=== PATIENT | male | born 1955 | race Caucasian/White ===

== ENCOUNTER 2017-09-19 19:01 | Inpatient (IN) ==
--- NOTE | 2017-09-19 19:08 | Emergency Department Note ---
ED Disposition Clinical Impression: Angina pectoris, Elevated troponin Disposition: Still a Patient Condition on Discharge: Good - Critical Care Critical Care Time: No Attestation: On , the high probability of a clinically significant, sudden or life threatening deterioration of the following system(s) required my full and direct attention, intervention and personal management. The time I documented below is in addition to time spent performing reported procedures but includes the following listed in this critical care notation. Medical Decision Making - Mendel Inquiry Pt receiving controlled substance: No Vital Signs: 09/19/17 19:02 Temperature 99 F Temperature Source Oral Pulse Rate [Left Brachial] 89 Respiratory Rate 16 Blood Pressure [Left Arm] 176/92 Blood Pressure Mean [Left Arm] 120 Blood Pressure Source [Left Arm] Automatic Cuff Blood Pressure Position [Left Arm] Sitting 02 Sat by Pulse Oximetry 95 Oxygen Delivery Method Room Air - Lab Data Lab Results 09/19/17 19:12: WBC 7.2, RBC 5.22, Hgb 15.3, Hct 47.7, MCV 91.4, MCH 29.3, MCHC 32.0, RDW 12.7, Plt Count 200, MPV 8.5, Neut % (Auto) 58.6, Lymph % (Auto) 32.0 , [place] % (Auto) 5.9, Eos % (Auto) 3.0, Baso % (Auto) 0.6, Neut # (Auto) 4.2, Lymph # (Auto) 2.3, [place] # (Auto) 0.4, Eos # (Auto) 0.2, Baso # (Auto) 0.0 09/19/17 19:12: Sodium 139, Potassium 3.5, Chloride 102, Carbon Dioxide 32, Anion Gap 8.5, BUN 13, Creatinine 0.93, Estimated Creat Clear 103, Estimated GFR 82, Est GFR ( Amer) 100, Glucose 176 H, Calcium 9.0, Total Bilirubin 0.4, AST 16, ALT 21, Alkaline Phosphatase 108, Total Creatine Kinase 81, CK-MB ( CK-2) 3.1, CK-MB (CK-2) Rel Index 3.8, Troponin I 0.09 H, Total Protein 7.3, Albumin 3.5, Globulin 3.8 H, Albumin/Globulin Ratio 0.9 L Result diagrams: 09/19/17 19:12 09/19/17 19:12 Orders (Tests/Meds): ED MEDICATIONS Discontinued Medications Generic Name Dose Route Start Last Admin Trade Name Sarah PRN Reason Stop Dose Admin Ticagrelor 180 mg 09/19/17 20:08 Brilinta 90mg Tablet PO 09/19/17 20:09 ONCE ONE ORDERS Category Date Time Status XR chest 2V Stat Exams 09/19/17 19:13 Taken ECG Request by /Anurag Stat Y 09/19/17 19:13 Ordered - Radiology Data #1 Image(s): Chest Image Reviewed: Yes I reviewed the patient's radiology image prior cabg, no acute process - ECG Data Tracing #1 EKG interpreted by Hernesto Patel MD: Rhythm: sinus Rate: 90 Lane: Left Ectopy: none Conduction: normal ST Segment Changes: Nonspecific ant/lat T Wave Changes: Nonspecific ant/lat Q Waves: none Minimal septal R waves, possible old septal [place] no evidence of acute ischemia or injury - TANMAY Score for Non-STEMI Age of patient: Less than 65 yrs Number of risk factors for CAD: Presence of 3 or more Prior coronary artery stenosis(seen in coronary angiography): 50% or more ST-Segment deviation on ECG (more than 1 min): Absent Prior aspirin intake: ASA intake in the last 7 days Severe anginal chest pain: Two or more episodes in last 24 hours Elevated cardiac markers(CK-MB or troponin): Present Non-Stemi Risk Score: 5 Medical Decision Narrative: 8:00 PM: Discussed with Dr. Villa. He requests patient be started on Brilinta, admit to hospital. I have discussed the case with Dr. Luu who agrees to admit the patient to the hospital. We discussed the patient's clinical information, including history, exam, laboratory and radiology results and ED course. Per hospital procedure, I will write temporary bridge inpatient orders on the patient. Specific orders requested by the admitting physician: Serial cardiac enzymes, cardiology consult General Adult HPI - General Stated complaint: CP Time Seen by Provider: 09/19/17 19:06 - History of Present Illness HPI narrative: Brought in by ambulance for chest pain. was loading a mower 35 minutes ago when he developed substernal chest pain. Associated shortness of breath, but no nausea, vomiting, or diaphoresis. Received nitroglycerin during transport and pain is now completely gone. States he has been having the same kind of chest pain off and on for 6 months, almost daily, depending on his activity. Brought on by exertion and relieved by nitroglycerin. Random nitroglycerin today and therefore did not have any to take. He has a history of coronary artery disease and myocardial infarction 14 years ago with 5 vessel bypass surgery 13 years ago. Has not had any stress tests or angiogram since then. Does not want to see the special education secretary that he saw for his previous treatment. His internal medicine doctors in [place]. Takes aspirin daily. - Related Data Home Medications Medication Instructions Recorded Confirmed Aspirin [Aspirin 325mg Tab] 325 mg PO DAILY 09/19/17 09/19/17 Clopidogrel Bisulfate [Plavix 75mg 75 mg PO DAILY 09/19/17 09/19/17 Tab] Lisinopril [Lisinopril 40mg Tablet] 40 mg PO DAILY 09/19/17 09/19/17 diazePAM [Valium] 10 mg PO DAILY 09/19/17 09/19/17 hydroCHLOROthiazide 12.5 mg PO DAILY 09/19/17 09/19/17 [Hydrochlorothiazide 12.5mg Tab] Allergies Allergy/AdvReac Type Severity Reaction Status Date / Time pravastatin [From Pravachol] Allergy Intermediate Hives Verified 09/19/17 19:18 ezetimibe [From Zetia] Allergy Hives Verified 09/19/17 19:18 [facility] History I have reviewed the patient's past medical history: Yes ROS Obtained: Yes All systems reviewed & no additional complaints - Constitutional Constitutional: Denies excessive sweating - Cardiovascular Cardiovascular: Reports chest pain, Reports dyspnea - Respiratory Respiratory: No cough - Gastrointestinal Gastrointestingal: Denies: nausea, vomiting Physical Exam - General General appearance: alert, in no apparent distress - Head Head exam: atraumatic, normocephalic, normal inspection - Eye Eye exam: Present: normal appearance, PERRL, EOMI - ENT ENT exam: Present: normal exam, normal oropharynx, mucous membranes moist, TM's normal bilaterally, normal external ear exam - Neck Neck exam: Present: normal inspection, full ROM, trachea midline. Absent: meningismus, lymphadenopathy - Chest Chest inspection: Present: normal inspection, symmetric chest wall rise. Absent : tenderness - Respiratory Respiratory exam: Present: normal lung sounds bilaterally. Absent: respiratory distress - Cardiovascular Cardiovascular exam: Present: regular rate, normal rhythm. Absent: JVD - Abdominal Exam Abdominal exam: Present: soft, normal bowel sounds. Absent: distention, tenderness, guarding - Extremities Exam Extremities exam: Present: normal inspection, full ROM, normal capillary refill. Absent: calf tenderness - Neurological Exam Neurological exam: Present: alert, oriented X3 - Psychiatric Psychiatric exam: Present: normal affect, normal mood - Skin Skin exam: Present: warm, dry, intact, normal color
[2017-09-19 19:29] LABS: Basophils % 0.6 % (0.1-2.0); Eosinophils # 0.2 K/mm3 (0.0-0.4); Hematocrit 47.7 % (42.0-52.0); Hemoglobin 15.3 g/dL (14.1-18.0); Lymphocytes # 2.3 K/mm3 (0.7-4.5); Mean Corpuscular Hemoglobin 29.3 pg (27.0-31.2); Mean Corpuscular Volume 91.4 fl (80-94); Mean Platelet Volume 8.5 fl (7.4-10.4); Monocytes # 0.4 K/mm3 (0.1-1.0); Monocytes % 5.9 % (1.7-9.3); Neutrophils # 4.2 K/mm3 (1.8-7.8); Neutrophils % 58.6 % (37.0-80.0); Platelet Count 200 K/mm3 (142-424); Red Blood Count 5.22 M/mm3 (4.60-6.20); Red Cell Distribution Width 12.7 % (11.5-17.5); White Blood Count 7.2 K/mm3 (4.8-10.8)
[2017-09-19 19:56] LABS: Albumin Level 3.5 gm/dL (3.4-5.0); Albumin/Globulin Ratio 0.9 (1.1-1.8); Anion Gap 8.5 mEq/L (5-15); Bilirubin,Total 0.4 mg/dL (0.2-1.0); Globulin 3.8 gm/dl (1.3-3.2); Potassium 3.5 mmoL/L (3.5-5.1); Total Protein,Serum 7.3 gm/dL (6.4-8.2)
--- NOTE | 2017-09-20 08:02 | Pharmacy Consult Notes ---
[facility] Pharmacy VTE Monitoring - Patient Demographics Admission date: 09/19/17 Report Date: 09/20/17 Time: 08:01 Allergies/Adverse Reactions: Patient Allergies pravastatin [From Pravachol] Allergy (Intermediate, Verified 09/19/17 19:18) Hives ezetimibe [From Zetia] Allergy (Verified 09/19/17 19:18) Hives Height: 1.75 m Weight: 95.736 kg Patient Problems: Current Active Problems Angina pectoris (Acute) Elevated troponin (Acute) - VTE Risk Labs: VTE Related Lab Results Hgb 15.3 g/dL (14.1-18.0) 09/19/17 19:12 Hct 47.7 % (42.0-52.0) 09/19/17 19:12 Plt Count 200 K/mm3 (142-424) 09/19/17 19:12 BUN 13 mg/dL (7-18) 09/19/17 19:12 Creatinine 0.93 mg/dL (0.70-1.30) 09/19/17 19:12 Estimated Creat Clear 103 mL/min (0-300) 09/19/17 19:12 Was VTE Risk Assessment Performed: Yes VTE Score: 3 VTE Risk Level: Low Risk Clinical Trial Participant: No - Prophylaxis VTE Prophylaxis Ordered?: Yes Types of VTE Prophylaxis: TEDS Knee High Location of Applied Device: Bilateral Lower Extremeties
--- NOTE | 2017-09-20 09:09 | History & Physical Report ---
*Admission Date: 09/19/17 *Chief complaint: chest pain *History of present illness: this wm who has hx of cad with cabg has been having progressive chest pain over the last few weeks with rest and exertion with relief with ntg-ought in by ambulance for chest pain. was loading a mower 35 minutes ago when he developed substernal chest pain. Associated shortness of breath, but no nausea , vomiting, or diaphoresis. Received nitroglycerin during transport and pain is now completely gone. he has been having the same kind of chest pain off and on for 6 months, almost daily, depending on his activity. Brought on by exertion and relieved by nitroglycerin. Random nitroglycerin today and therefore did not have any to take. He has a history of coronary artery disease and myocardial infarction 14 years ago with 5 vessel bypass surgery 13 years ago. Has not had any stress tests or angiogram since then. Does not want to see the mix house operator that he saw for his previous treatment. [facility] History I have reviewed the patient's past medical history: Yes Medical History: Reports:: Congestive Heart Failure, Hyperlipidemia, Hypertension Denies:: Cancer, Diabetes Mellitus Type 1, Diabetes Mellitus Type 2, MRSA Other Medical History: Reports: Arthritis, Sinus Problems Other Surgeries: Yes: Cardiac Catheterization, Open Heart Surgery Amputation: No Fractures: No - *Social History Educational Level: Completed High School Smoking Status: Current every day smoker Tobacco Type: cigarettes # Packs/Day (cigarettes): 1 Alcohol Intake: never Occupational Status: employed Housing: other Household Members: spouse - Psychiatric History Expresses thoughts of harming self/others: None Suicide Plan Description: No Plan *Family Hx:: Cancer, Diabetes, Hyperlipidemia, Hypertension Review of Systems - Review of Systems Review of systems:: pertinent systems reviewed and negative unless documented below - Constitutional Denies fever(s) - Eyes Denies change in vision - ENT Denies change in voice - *Cardiovascular Reports chest pain at rest, Reports chest pain with activity - *Respiratory Reports shortness of breath - *Gastrointestinal Denies abdominal pain - *Genitourinary Denies blood in urine - *Musculoskeletal Denies joint pain - Integumentary/Breasts Denies rash - *Neurologic Denies confusion - Psychiatric Denies anxiety Meds Home Medications Medication Instructions Recorded Confirmed Type Aspirin [Aspirin 325mg Tab] 325 mg PO DAILY 09/19/17 09/19/17 History Clopidogrel Bisulfate [Plavix 75mg 75 mg PO DAILY 09/19/17 09/19/17 History Tab] Lisinopril [Lisinopril 40mg Tablet] 40 mg PO DAILY 09/19/17 09/19/17 History Sertraline HCl [Zoloft 100mg 50 mg PO DAILY 09/19/17 09/20/17 History tablet] diazePAM [Valium] 10 mg PO DAILY 09/19/17 09/19/17 History hydroCHLOROthiazide 12.5 mg PO DAILY 09/19/17 09/19/17 History [Hydrochlorothiazide 12.5mg Tab] Nitroglycerin [Nitrostat 0.4mg SL 0.4 mg SL NEEDED PRN 09/20/17 09/20/17 History Tablet] Allergies Allergy/AdvReac Type Severity Reaction Status Date / Time pravastatin [From Pravachol] Allergy Intermediate Hives Verified 09/19/17 19:18 ezetimibe [From Zetia] Allergy Hives Verified 09/19/17 19:18 Exam Vital signs and Labs for Last 24 Hours: Temp Pulse Resp BP Pulse Ox 98.7 F 70 20 167/95 99 09/20/17 07:32 09/20/17 07:32 09/20/17 07:32 09/20/17 07:32 09/20/17 08:00 Laboratory Results - last 24 hr 09/19/17 21:20: Troponin I 0.55 H 09/20/17 00:25: Troponin I 1.20 H I & O for Last 24 hours: Intake & Output 09/17/17 09/18/17 09/19/17 09/20/17 11:59 11:59 11:59 11:59 Intake Total 0 / 0 Balance 0 / 0 Weight 211 lb 1 oz - Constitutional no acute distress - *Routine HEENT Exam Head: Present: normocephalic Eye: Present: EOMI, PERRL ENT: Present: mucous membranes moist - *Routine Neck Exam Present: supple - *Routine Respiratory Exam Present: CTA bilaterally - *Routine Cardiovascular Exam Present: RRR, murmur - *Routine Abdominal Exam Present: soft - *Routine Extremities Exam Absent: edema - *Routine Skin Exam Present: intact - *Routine Neurological Exam Present: alert, oriented X3, CN II-XII intact - Routine Psychiatric Exam Present: normal affect H&P: Result - Labs Labs: Cardiac Enzymes 09/19/17 09/20/17 Range/Units 21:20 00:25 Troponin I 0.55 H 1.20 H (0.00-0.06) ng/ml Assessment and Plan (1) Angina at rest Current visit: Yes Status: Acute Category: Medical Code(s): I20.8 - Other forms of angina pectoris (2) Non-STEMI (non-ST elevated myocardial infarction) Current visit: Yes Status: Acute Category: Medical Code(s): I21.4 - Non- ST elevation (NSTEMI) myocardial infarction
--- NOTE | 2017-09-21 11:37 | Progress Note ---
Subjective Date: 09/21/17 Time: 11:35 Principal diagnosis: Angina Pectoris and Non-STEMI elevated myocardial infarction Interval history: 62-year-old white gentleman admitted to facility 1 day ago with chest pain and shortness of breath. Patient noted to have a non-STEMI myocardial infarction. 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 Estimated ejection fraction 25%. Exam Vital signs and Labs for Last 24 Hours: Temp Pulse Resp BP Pulse Ox 98.5 F 66 97 H 148/80 97 09/21/17 04:00 09/21/17 07:47 09/21/17 07:47 09/21/17 07:47 09/21/17 07:47 I & O for Last 24 hours: Intake & Output 09/18/17 09/19/17 09/20/17 09/21/17 23:59 23:59 23:59 23:59 Intake Total 1080 / 1080 370 / 370 Output Total 600 / 600 Balance 480 / 480 370 / 370 Weight 211 lb 1 oz 211 lb 1 oz Progress Note: A&P (1) Angina at rest Status: Acute Current Visit: Yes (2) Non-STEMI (non-ST elevated myocardial infarction) Status: Acute Current Visit: Yes (3) Angina pectoris Status: Acute Current Visit: Yes (4) Elevated troponin Status: Acute Current Visit: Yes Assessment and Plan for All Diagnoses:: Plan: 1. Pt will need to continue an Tyler Inhibitor and beta vadim for 3 months in order to proceed with AICD placement. 2. Repeat Echocardiogram (outpatient) in 3 months to determine AICD placement. EF 25%. 3. Apply Lifevest prior to discharge due to the severity of Ejection fraction of 25%. 4. Cardiology clinic follow up in 1 week.
--- NOTE | 2017-09-21 11:48 | Discharge Summary ---
General - General Admission date: 09/19/17 Discharge date: 09/21/17 HPI HPI: this wm who has hx of cad with cabg has been having progressive chest pain over the last few weeks with rest and exertion with relief with ntg-ought in by ambulance for chest pain. was loading a mower 35 minutes ago when he developed substernal chest pain. Associated shortness of breath, but no nausea , vomiting, or diaphoresis. Received nitroglycerin during transport and pain is now completely gone. he has been having the same kind of chest pain off and on for 6 months, almost daily, depending on his activity. Brought on by exertion and relieved by nitroglycerin. Random nitroglycerin today and therefore did not have any to take. He has a history of coronary artery disease and myocardial infarction 14 years ago with 5 vessel bypass surgery 13 years ago. Has not had any stress tests or angiogram since then. Does not want to see the group sales manager that he saw for his previous treatment. Hospital Course Hospital Course: pt with atypical pain in thoracic area which is relieved with ntg and had card eval and cath-Coronary artery disease 2. Acute non-ST elevation myocardial infarction type II 3. History of coronary bypass surgery Informed consent was obtained prior to the procedure. COMPLICATIONS: None ESTIMATED BLOOD LOSS: Less than 10 ml. TECHNIQUE: One percent lidocaine used to anesthetize the right groin. The right femoral artery was accessed via the Seldinger technique and a 5 [place] sheath was placed in the right femoral artery. A JL 4, JR4 catheter were used to perform left heart catheterization left ventriculogram selective coronary angiography as well as selective engagement of the 2 vein grafts and the left internal mammary artery. Multiple catheters were used in order to cannulate the anomalous takeoff of the right coronary artery. Sia 16 [place] catheter was used intubate the anomalous right coronary artery which had the left coronary artery cusp origination. At the end of the procedure the apparatus was removed the groin is reprepped artery change sheath was removed good hemostasis was achieved using Perclose device patient transferred the postop holding area in stable condition ANGIOGRAPHIC RESULTS: 1. The left main artery has a distal 60% stenosis 2. The left anterior descending artery gives rise to a small diagonal system and a small septal pre school manager but is effectively proximally occluded 3. The circumflex artery is probably a dominant vessel and has proximal 90% stenoses additional 99% stenosis and gives rise to 2 obtuse marginal arteries which are subtotally occluded 4. The right coronary artery has an anomalous takeoff and originates in the left coronary cusp. This is a small vessel does not provide flow to the left ventricle and is free of significant disease 5. The MAN ventriculogram reveals moderate left ventricular dilatation inferior hypokinesis anterior hypokinesis estimated ejection fractions 25% 6. The left ventricular end-diastolic pressure 30 mmHg 7. The left internal mammary artery evelyn a large widely patent graft was made to its first anastomosis on to a very high first diagonal artery and then skips to the mid LAD. Distally the LAD sends collaterals to the circumflex artery 8. The saphenous vein graft to the left coronary artery is ostially occluded 9. The saphenous vein graft to the right coronary artery is ostially occludedRESSION: 1. Severe [place] coronary disease as described above 2. 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 Patent ELLER to the high diagonal artery and mid LAD 4. Severe systolic congestive heart failure 5. Moderate to severely elevated LVEDP consistent with decompensated congestive heart failure 6. 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 Chronically occluded saphenous vein graft to the obtuse marginal artery PLAN: 1. Patient likely experience to type II non-ST elevation myocardial infarction. The infarct was more from demand ischemia and decreased cardiac output rather than acute plaque rupture. 2. Patient requires absolute tobacco cessation 3. Standard therapy for systolic heart failure including interest of beta blockers diuretics etc. 4. LDL less than 55 5. Cardiac rehabilitation 6. If patient has been on an GALDINO inhibitor and beta vadim for at least 3 months then we can proceed with an AICD. If he has not been on galdino inhibitor and beta vadim for 3 months then we will start medical management and reevaluate ejection fraction in 3 months to determine if patient is an AICD candidate 7. If patient is willing to wear lifevest this would be advisable because of his severely reduced ejection [id number] white gentleman admitted to facility 1 day ago with chest pain and shortness of breath. Patient noted to have a non-STEMI myocardial infarction. Patient underwent left heart catheterization which revealed severe [place] coronary artery disease, right coronary artery which originates in the left coronary cuspid which does not provide flow to the left ventricle is nondominant, patent ELLER to the high diagonal artery and mid LAD, severe systolic congestive heart failure, moderate to severely elevated LVEDP consistent with decompensated congestive heart failure, chronically occluded saphenous vein graft to the RCA and chronic occluded saphenous vein graft to the obtuse marginal artery. Estimated ejection fraction 25%. Objective Vital signs: Temp Pulse Resp BP Pulse Ox 98.5 F 66 97 H 148/80 97 09/21/17 04:00 09/21/17 07:47 09/21/17 07:47 09/21/17 07:47 09/21/17 07:47 no acute distress - *Routine HEENT Exam Head: Present: normocephalic Eye: Present: EOMI, PERRL ENT: Present: mucous membranes dry - *Routine Neck Exam Present: supple. Absent: JVD - *Routine Respiratory Exam Present: CTA bilaterally - *Routine Cardiovascular Exam Present: RRR, murmur - *Routine Abdominal Exam Present: soft - *Routine Extremities Exam Present: full ROM. Absent: calf tenderness - *Routine Skin Exam Present: intact - *Routine Neurological Exam Present: alert, oriented X3, CN II-XII intact - Routine Psychiatric Exam Present: normal affect DS: Diagnosis - Discharge Diagnosis (1) Angina at rest Status: Acute (2) Non-STEMI (non-ST elevated myocardial infarction) Status: Acute Discharge Plan - Patient Discharge Instructions ACTIVITY: Continue current activity DIET: continue same diet Patient Instructions: DI for Heart Attack, Cardiac Catheterization, Heart- Healthy Diet - Follow up Plan Disposition: Home, Self-Retirement Medications: Home Medications Medication Instructions Recorded Confirmed Type Aspirin [Aspirin 325mg Tab] 325 mg PO DAILY 09/19/17 09/19/17 History Clopidogrel Bisulfate [Plavix 75mg 75 mg PO DAILY 09/19/17 09/19/17 History Tab] Lisinopril [Lisinopril 40mg Tablet] 40 mg PO DAILY 09/19/17 09/19/17 History Sertraline HCl [Zoloft 100mg 50 mg PO DAILY 09/19/17 09/20/17 History tablet] diazePAM [Valium] 10 mg PO DAILY 09/19/17 09/19/17 History hydroCHLOROthiazide 12.5 mg PO DAILY 09/19/17 09/19/17 History [Hydrochlorothiazide 12.5mg Tab] Nitroglycerin [Nitrostat 0.4mg SL 0.4 mg SL NEEDED PRN 09/20/17 09/20/17 History Tablet] Prescriptions/Medication Reconciliation: New Lisinopril [Zestril 20mg tab] 40 mg PO DAILY #60 tablet Furosemide [Lasix 20mg tablet] 20 mg PO BIDL #60 tab Spironolactone [Aldactone 25mg Tab] 25 mg PO BID #60 tab Carvedilol [Coreg 3.125mg Tablet] 3.125 mg PO BID #60 tab Continue Aspirin [Aspirin 325mg Tab] 325 mg PO DAILY Lisinopril [Lisinopril 40mg Tablet] 40 mg PO DAILY Clopidogrel Bisulfate [Plavix 75mg Tab] 75 mg PO DAILY Sertraline HCl [Zoloft 100mg tablet] 50 mg PO DAILY diazePAM [Valium] 10 mg PO DAILY Discontinued hydroCHLOROthiazide [Hydrochlorothiazide 12.5mg Tab] 12.5 mg PO DAILY Nitroglycerin [Nitrostat 0.4mg SL Tablet] 0.4 mg SL NEEDED PRN PRN Reason: Chest Pain
--- NOTE | 2017-09-22 12:33 | Progress Note ---
Internal Medicine - PN: Subj *Date: 09/22/17 *Time: 12:31 Interval history: doing ok and life vest denied by insur co and i talked with pt and dr sampson Exam Vital signs and Labs for Last 24 Hours: Temp Pulse Resp BP Pulse Ox 98.8 F 64 18 132/75 97 09/22/17 11:55 09/22/17 11:55 09/22/17 11:55 09/22/17 11:55 09/22/17 11:55 I & O for Last 24 hours: Intake & Output 09/20/17 09/21/17 09/22/17 09/23/17 11:59 11:59 11:59 11:59 Intake Total 0 / 0 1450 / 1450 500 / 500 Output Total 600 / 600 600 / 600 Balance 0 / 0 850 / 850 -100 / -100 Weight 211 lb 1 oz - Constitutional no acute distress - *Routine HEENT Exam Head: Present: normocephalic Eye: Present: EOMI, PERRL ENT: Present: mucous membranes dry - *Routine Neck Exam Absent: JVD - *Routine Respiratory Exam Present: CTA bilaterally - *Routine Cardiovascular Exam Present: RRR, murmur - *Routine Extremities Exam Present: full ROM - *Routine Skin Exam Present: intact - *Routine Neurological Exam Present: oriented X3, CN II-XII intact - Routine Psychiatric Exam Present: normal affect Assessment and Plan (1) Angina at rest Current visit: Yes Status: Acute Category: Medical Code(s): I20.8 - Other forms of angina pectoris (2) Non-STEMI (non-ST elevated myocardial infarction) Current visit: Yes Status: Acute Category: Medical Code(s): I21.4 - Non- ST elevation (NSTEMI) myocardial infarction (3) Angina pectoris Current visit: Yes Status: Acute Category: Medical Code(s): I20.9 - Angina pectoris, unspecified (4) Elevated troponin Current visit: Yes Status: Acute Category: Medical Code(s): R74.8 - Abnormal levels of other serum enzymes
--- NOTE | 2017-09-22 13:52 | Progress Note ---
Subjective Date: 09/22/17 Time: 13:30 Principal diagnosis: Angina Pectoris and Non-STEMI elevated myocardial infarction Interval history: 62 year old white male admitted for chest pain and Non-ST elevated myocardial infarction 2 days ago. Pt denies chest pain or shortness of breath. Pt is waiting patiently for insurance company to approve lifevest. Pt has known severe coronary pit river disease with moderate to severe elevated LVEDP consistent with decompensated congestive heart failure. EF is noted at 25%. Pt has been made aware of the insurance denying the request for the lifevest as this time. Peer to peer with [employer] is trying to be set up so possibly the lifevest can be approved. [employer] has been contacted and voice mails have been sent to return cardiology call for a peer to peer. Pt and his are aware and will be notified once [employer] peer to peer has been completed. Pt requesting to go home. Exam Vital signs and Labs for Last 24 Hours: Temp Pulse Resp BP Pulse Ox 98.8 F 64 18 132/75 97 09/22/17 11:55 09/22/17 11:55 09/22/17 11:55 09/22/17 11:55 09/22/17 11:55 I & O for Last 24 hours: Intake & Output 09/19/17 09/20/17 09/21/17 09/22/17 23:59 23:59 23:59 23:59 Intake Total 1080 / 1080 860 / 860 10 / 10 Output Total 600 / 600 600 / 600 Balance 480 / 480 260 / 260 10 / 10 Weight 211 lb 1 oz 211 lb 1 oz - Constitutional no acute distress, average body habitus, cooperative - *Routine Neck Exam Present: supple, full ROM, normal carotid upstroke, trachea midline. Absent: JVD, carotid bruit - *Routine Respiratory Exam Present: CTA bilaterally. Absent: rales, rhonchi, wheezes, crackles - *Routine Cardiovascular Exam Present: RRR, Normal S1, Normal S2. Absent: murmur, gallop, rubs, JVD - *Routine Abdominal Exam Present: soft, normoactive bowel sounds. Absent: guarding, firm - *Routine Extremities Exam Present: full ROM, pulses intact, normal capillary refill. Absent: cyanosis, clubbing, edema, calf tenderness - *Routine Neurological Exam Present: alert, oriented X3, CN II-XII intact, moving all extremities, normal speech Progress Note: A&P (1) Angina at rest Status: Acute Current Visit: Yes (2) Non-STEMI (non-ST elevated myocardial infarction) Status: Acute Current Visit: Yes (3) Angina pectoris Status: Acute Current Visit: Yes (4) Elevated troponin Status: Acute Current Visit: Yes Assessment and Plan for All Diagnoses:: Plan: 1. Continue current medical management. 2. Cardiology clinic staff will contact pt after the Peer to Peer review regarding the Lifevest. 2. Cardiology clinic follow up on Monday09/26/17.
== END 2017-09-22 14:15 | disposition home or self-care (01) ==
LOC: 2ND 19:01 → ER 19:01 → OBSVTOIN 20:40 → 2ND 20:41
PROVIDERS: ADMIT Emergency Medicine; ATTEND Emergency Medicine

== ENCOUNTER → 2017-10-05 07:59 | Outpatient (CLI) | payer BC, SELFPAY ==
--- NOTE | 2017-10-05 08:02 | AS_ITS ---
Renal Arterial Duplex Indications: 405.91 Unspecified renovascular hypertension. IMPRESSIONS 1. Greater than 60% stenosis involving the right renal artery 2. Greater than 60% stenosis involving the left renal artery 3. Incidental findings: A cyst is visualized at the left kidney measuring 1.4 X 1.3 cm. Aorta flow velocities are below normal limits and aorta appears ectatic, this may be attributing to elevated renal aorta ratios. Complete renal arterial duplex. Duplex scan and Doppler flow study including spectral analysis, color and smith scale imaging. Height: Height: 175.3cm. Height: 69in. Weight: Weight: 96.6kg. Weight: 212.6lb. Body mass index: BMI: 31.5kg/m^2. Body surface area: BSA: 2.2m^2. Location: Vascular laboratory. Patient status: Outpatient. Tables: Arterial flow: + +-------+--------+ Location V sys V ed + +-------+--------+ Right renal - proximal 261cm/s 75.4cm/s + +-------+--------+ Right renal - mid 203cm/s 50.8cm/s + +-------+--------+ Right renal - distal 130cm/s -------- + +-------+--------+ Left renal - proximal 249cm/s 85.6cm/s + +-------+--------+ Left renal - mid 258cm/s 79.7cm/s + +-------+--------+ Left renal - distal 148cm/s 48.5cm/s + +-------+--------+ Right renal - Origin 254cm/s 71cm/s + +-------+--------+ Left renal - Origin 198cm/s 68cm/s + +-------+--------+ Aorta - mid 50cm/s -------- + +-------+--------+ Artery mapping: + +--------+ + Location Diameter Comment + +--------+ + Abdominal aorta - mid 2.7mm Mid to distal aorta appears ectatic. Flow velocities are lower than normal limits. + +--------+ + Renal anatomy: + +-----+------+ Left Right + +-----+------+ Long axis 12cm 11.5cm + +-----+------+ Short axis 5.5cm 5cm + +-----+------+ Velocity ratios: + +-----+ V sys + +-----+ Right renal/aortic 5.2 + +-----+ Left renal/aortic 5.2 + +-----+ (Report amended ) Electronically signed by: Harinder Johnson [id number]
== END ==
PROVIDERS: PCP Internal Medicine; Visit Provider Internal Medicine
DX: I10 Essential (primary) hypertension (principal)
CPT/HCPCS: 93976

== ENCOUNTER → 2018-01-03 09:48 | Outpatient (CLI) | payer BC, SELFPAY ==
--- NOTE | 2018-01-03 09:49 | CA_ITS ---
PROCEDURE: 2-D M-mode and color Doppler study INDICATIONS FOR THE TEST: Chest pain COPD Heart Murmur Tobacco Smoking+ Palpitations Fatigue+ Syncope Edema Hypertension+Diabetes Mellitus Rheumatic Fever SOB HERZOG+Obesity Hyperlipidemia+ Family History HD Additional History CABG 14 years ago, dizziness, hx of CO 09/2017 PATIENT INFORMATION HEIGHT: 69 WEIGHT: 206 GENDER: Male B/P: 150/78 2-D/M-MODE INTERPRETATION: 2-D MEASUREMENTS OBSERVED VALUES IN CMS Right Ventricular Dimension (RVDd) 2.9 Interventricular Septum (Thickness)(IVsd) 1.2 Left Ventricular Internal Dimensions(LVIDd) 5.0 Left Ventricular Posterior Wall (Thickness)(LVPWd) 1.1 Aortic Root 2.8 Aortic Cusp Separation 2.3 Left Atrial Dimensions (LAD) 3.7 2D 1. Left atrium is mildly enlarged, left ventricle is normal size mild concentric left ventricular hypertrophy, visually estimated ejection fraction approximately 45%, there is moderate hypokinesis involving the basal septum, inferior and posterobasal wall. 2. The right atrium and right ventricle are mildly enlarged with normal contractility. 3. The aortic valve is minimally thickened and fibrosed. 4. The mitral valve has mitral calcification, leaflets are minimally thickened. 5. The tricuspid valve is grossly normal. 6. The pulmonic valve is poorly visualized. 7. No significant pericardial effusion noted. DOPPLER INTERROGATION: Doppler interrogation of the aortic, mitral and tricuspid valvular presence of mild mitral and tricuspid regurgitation, tricuspid regurgitant jet velocity insufficient for acquisition of the right ventricular systolic pressure, grade 1 diastolic dysfunction seen with tissue Doppler evidence of raised left atrial pressure. CONCLUSION: 1. Biatrial enlargement, normal left ventricular size, mild concentric left ventricular hypertrophy, visually estimated ejection fraction of 45% with segmental wall motion abnormality described above, grade 1 diastolic dysfunction seen with tissue Doppler evidence of raised left atrial pressure. 2. Mildly enlarged right ventricle with normal contractility. 3. Mild mitral and tricuspid regurgitation 4. No significant pericardial effusion noted.
== END ==
PROVIDERS: PCP Internal Medicine; Visit Provider Internal Medicine
DX: I25.5 Ischemic cardiomyopathy (principal)
CPT/HCPCS: 93306

== ENCOUNTER → 2018-10-02 12:26 | Outpatient (CLI) | payer BC, SELFPAY ==
--- NOTE | 2018-10-02 12:30 | CA_ITS ---
PROCEDURE: 2-D M-mode and color Doppler study INDICATIONS FOR THE TEST: Chest pain COPD Heart Murmur Tobacco Smoking+ Palpitations Fatigue Syncope Edema Hypertension+Diabetes Mellitus Rheumatic Fever SOB+HERZOG+Obesity+Hyperlipidemia+ Family History HD Additional History ABN EKG, CAD, CM PATIENT INFORMATION HEIGHT: 69 WEIGHT:204 GENDER: Male B/P:171/72 2-D/M-MODE INTERPRETATION: 2-D MEASUREMENTS OBSERVED VALUES IN CMS Right Ventricular Dimension (RVDd) 1.8 Interventricular Septum (Thickness)(IVsd) 1.9 Left Ventricular Internal Dimensions(LVIDd) 5.0 Left Ventricular Posterior Wall (Thickness)(LVPWd) 1.0 Aortic Root 3.5 Aortic Cusp Separation 1.8 Left Atrial Dimensions (LAD) 3.7 2D 1. Left atrium is mildly enlarged, left ventricle is normal size, mild concentric left ventricular hypertrophy, visually estimated ejection fraction approximately 45%, there appears to be moderate hypokinesis involving the distal septum and anteroapical wall. Endocardial surface of poorly visualized. 2. The right atrium and right ventricle are normal size and contractility. 3. The aortic valve is thickened and calcified leaflet continue to display mobility. 4. The mitral and tricuspid valve leaflets are minimally thickened. 5. The pulmonic valve is poorly visualized. 6. No significant pericardial effusion noted. DOPPLER INTERROGATION: Doppler interrogation of the aortic, mitral and tricuspid valvular presence of mild mitral and tricuspid regurgitation, calculated right ventricular systolic pressure is 40 mmHg consistent with mild pulmonary hypertension, grade 1 diastolic dysfunction seen with tissue Doppler evidence of raised left atrial pressure. CONCLUSION: 1. Technically difficult study because of the patient's factor and poor acoustic windows. 2. Normal left ventricular size, mild concentric left ventricular hypertrophy, visually estimated ejection fraction 45% with segmental wall motion abnormality described above, grade 1 diastolic dysfunction seen with tissue Doppler evidence of raised left atrial pressure. 3. Mild mitral and tricuspid regurgitation, calculated right ventricular systolic pressure is 40 mmHg consistent with mild pulmonary hypertension. 4. No significant pericardial effusion noted.
== END ==
PROVIDERS: PCP Internal Medicine; Visit Provider Internal Medicine
DX: I25.5 Ischemic cardiomyopathy (principal); R06.09 Other forms of dyspnea; E78.49 Other hyperlipidemia; I10 Essential (primary) hypertension; I11.0 Hypertensive heart disease with heart failure; I25.708 Atherosclerosis of coronary artery bypass graft(s), unspecified, with other forms of angina pectoris; I50.21 Acute systolic (congestive) heart failure; R94.30 Abnormal result of cardiovascular function study, unspecified; Z72.0 Tobacco use
CPT/HCPCS: 93306